=== PATIENT | male | born 1990 | race Hispanic/Latino ===

== ENCOUNTER 2018-08-28 16:19 | Emergency (ER) | payer OTHER ==
[~2018-08-28] VITALS: Ht 175.3 cm; Wt 63.6 kg
[~2018-08-28 16:19] MED LIST: AMOXICILLIN500 MG PO; LORTAB 5-325 MG1 TAB PO; NO
[2018-08-28 18:51] VITALS: BP 125/73
== END 2018-08-28 18:51 | disposition home or self-care (01) | DRG 392 ==
LOC: ED 16:19
DX: R10.31 Right lower quadrant pain (principal); M54.5 Low back pain; F17.210 Nicotine dependence, cigarettes, uncomplicated; V43.52XA Car driver injured in collision with other type car in traffic accident, initial encounter

== ENCOUNTER 2018-11-11 16:17 | Emergency (ER) | payer SELFPAY | END 2018-11-11 16:41 | disposition left against medical advice (07) | DRG 951 | LOC: ED 16:17 → LWOBS 16:41 | DX: Z91.19 Patient's noncompliance with other medical treatment and regimen (principal) ==

== ENCOUNTER 2024-07-18 17:00 | Emergency (ER) | payer SELFPAY ==
[2024-07-18] VITALS (12 sets, daily range): BP systolic 105–138; BP diastolic 52–83
[~2024-07-18] VITALS: Ht 175.3 cm; Wt 77.1 kg
[2024-07-18] MEDS ORDERED: METHOCARBAMOL 500 MG/TAB PO ONE (17:15)
[2024-07-18] MEDS ORDERED: HYDROcodone 5 MG/Acetaminophen 325 MG/COMBO PO ONE (17:15)
[2024-07-18] MEDS ORDERED: LORTAB 5/3255 MG PO (19:26)
[2024-07-18] MEDS ORDERED: METHOCARBAMOL500 MG PO (19:26)
== END 2024-07-18 20:08 | disposition home or self-care (01) | DRG 999 ==
LOC: ED 17:00
PROC: 2W3MX1Z Immobilization of Left Lower Extremity using Splint (ICD-10-PCS; principal; 2024-07-18)
DX: S82.832A Other fracture of upper and lower end of left fibula, initial encounter for closed fracture (principal); S06.9X1A Unspecified intracranial injury with loss of consciousness of 30 minutes or less, initial encounter; S82.302A Unspecified fracture of lower end of left tibia, initial encounter for closed fracture; S93.402A Sprain of unspecified ligament of left ankle, initial encounter; M25.512 Pain in left shoulder; M25.511 Pain in right shoulder; F17.200 Nicotine dependence, unspecified, uncomplicated; V86.55XA Driver of 3- or 4- wheeled all-terrain vehicle (ATV) injured in nontraffic accident, initial encounter